=== PATIENT | male | born 1950 | race Caucasian/White ===

== ENCOUNTER 2019-05-24 22:35 | Emergency (ER) | payer MEDICARE, OTHER ==
[2019-05-24] MEDS ORDERED: Cephalexin 500 MG Cap ONE (22:58)
--- NOTE | 2019-05-24 23:27 | EDM.PDOC ---
ED HPI GENERAL MEDICAL PROBLEM - General Chief Complaint: Lower Extremity Injury/Pain Stated Complaint: foot problems Time Seen by Provider: 05/24/19 22:35 Source of Information: Reports: Patient History Limitations: Reports: No Limitations - History of Present Illness INITIAL COMMENTS - FREE TEXT/NARRATIVE: Vasu presents with a bullae of his great toe. Noticed a small black spot this am. Got home and now has a blister. His son is familiar with cellulitis. No fever or systemic issues. 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 NURSING OFFICER: Reports: Other (see below) Other 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 NURSING OFFICER: cpap - Related Data Allergies Allergy/AdvReac Type Severity Reaction Status Date / Time Penicillins Allergy Rash Verified 05/24/19 22:58 Home Meds: Home Meds Losartan [Cozaar] 1 tab PO DAILY 05/24/19 [History] Review of Systems - Review of Systems Review Of Systems: See Below Constitutional: Reports: No Symptoms Respiratory: Reports: No Symptoms ED EXAM, GENERAL - Physical Exam Exam: See Below Exam Limited By: No Limitations General Appearance: Alert, WD/WN, No Apparent Distress Extremities: Normal Inspection, Normal Range of Motion, Increased Warmth, Redness, Other (hemorrhagic bullae with partial rim and no underlying bony tenderness ) Neurological: Alert, Oriented, Normal Cognition, Normal Gait Psychiatric: Normal Affect, Normal Mood ( ) Skin Exam: Warm Course - Vital Signs Last Recorded V/S: Last Vital Signs Temp 97.7 F 05/24/19 22:59 Pulse 96 05/24/19 22:59 Resp 18 05/24/19 22:59 BP 151/96 H 05/24/19 22:59 Pulse Ox 98 05/24/19 22:59 Departure - Departure Time of Disposition: 22:40 Disposition: Home, Self-Care 01 Condition: Good Clinical Impression: Cellulitis Qualifiers: Site of cellulitis: extremity Site of cellulitis of extremity: lower extremity Laterality: right Qualified Code(s): L03.115 - Cellulitis of right lower limb - Discharge Information Instructions: Cephalexin tablets or capsules Forms: ED Department Discharge Care Plan Goals: Take Cephalexin 500mg 1 cap three times a day. Monitor Right foot blister for redness and warm that moves up the foot and leg, also chills,shaking and fever. Call Primary MD with further concerns. Sepsis Event Note - Evaluation Sepsis Screening Result: No Definite Risk - Focused Exam Vital Signs: Vital Signs Temp Pulse Resp BP Pulse Ox 05/24/19 22:59 97.7 F 96 18 151/96 H 98 Date Exam was Performed: 05/24/19 Time Exam was Performed: 23:22
== END 2019-05-24 23:10 | disposition home or self-care (01) ==
LOC: LB.ED 22:35
DX: L03.115 Cellulitis of right lower limb (principal); Z88.0 Allergy status to penicillin; Z79.899 Other long term (current) drug therapy
CPT/HCPCS: 99283; A9270-GY